=== PATIENT | male | born 1940 | race Caucasian/White ===

== ENCOUNTER 2023-04-09 10:15 | Outpatient (CLI) | payer OTHER | END 2023-04-09 10:16 | disposition home or self-care (01) | LOC: CSHMRI 10:15 | PROVIDERS: ATTEND Family Medicine | DX: M47.26 Other spondylosis with radiculopathy, lumbar region (principal) | CPT/HCPCS: 72100; 72148 ==

== ENCOUNTER 2024-02-17 08:00 | Outpatient (CLI) | payer OTHER | END 2024-02-17 08:01 | disposition home or self-care (01) | LOC: CSHMRI 08:00 | DX: M50.30 Other cervical disc degeneration, unspecified cervical region (principal); M47.812 Spondylosis without myelopathy or radiculopathy, cervical region; M25.78 Osteophyte, vertebrae | CPT/HCPCS: 72141 ==

== ENCOUNTER 2025-01-24 12:33 | Outpatient (CLI) | payer OTHER | END 2025-01-24 12:34 | disposition home or self-care (01) | LOC: CSHWCC 12:33 | PROVIDERS: ATTEND Nurse Practitioner Family | DX: L89.42 Pressure ulcer of contiguous site of back, buttock and hip, stage 2 (principal); L24.A0 Irritant contact dermatitis due to friction or contact with body fluids, unspecified; L98.9 Disorder of the skin and subcutaneous tissue, unspecified; I50.22 Chronic systolic (congestive) heart failure | CPT/HCPCS: 99214; G0463 ==

== ENCOUNTER 2025-02-01 09:22 | Outpatient (CLI) | payer OTHER | END 2025-02-01 09:23 | disposition home or self-care (01) | LOC: CSHWCC 09:22 | PROVIDERS: ATTEND Nurse Practitioner Family | DX: L89.42 Pressure ulcer of contiguous site of back, buttock and hip, stage 2 (principal); L24.A0 Irritant contact dermatitis due to friction or contact with body fluids, unspecified; L98.9 Disorder of the skin and subcutaneous tissue, unspecified; I50.22 Chronic systolic (congestive) heart failure | CPT/HCPCS: 99212; G0463 ==

== ENCOUNTER 2025-02-22 09:28 | Outpatient (CLI) | payer OTHER | END 2025-02-22 09:29 | disposition home or self-care (01) | LOC: CSHWCC 09:28 | PROVIDERS: ATTEND Nurse Practitioner Family | DX: L89.42 Pressure ulcer of contiguous site of back, buttock and hip, stage 2 (principal); L24.A0 Irritant contact dermatitis due to friction or contact with body fluids, unspecified; I50.22 Chronic systolic (congestive) heart failure; L98.9 Disorder of the skin and subcutaneous tissue, unspecified | CPT/HCPCS: 99212; G0463 ==